=== PATIENT | male | born 1985 | race Hispanic/Latino ===

== ENCOUNTER 2018-10-22 12:29 | Emergency (ER) | payer OTHER ==
[~2018-10-22] VITALS: Ht 177.8 cm; Wt 117.9 kg
[2018-10-22 12:42] VITALS: BP 119/82; TEMP 98.4
== END 2018-10-22 13:53 | disposition home or self-care (01) ==
LOC: ED 12:29
PROC: 2W3CX1Z Immobilization of Right Lower Arm using Splint (ICD-10-PCS; principal; 2018-10-22)
DX: S63.501A Unspecified sprain of right wrist, initial encounter (principal); M25.531 Pain in right wrist; W22.01XA Walked into wall, initial encounter; Y93.67 Activity, basketball
CPT/HCPCS: 99282